=== PATIENT | male | born 1975 | race Caucasian/White ===

== ENCOUNTER 2017-02-21 07:51 | Emergency (ER) | payer BC ==
[2017-02-21] MEDS ORDERED: Tetan/Diph/Pertus SYR(Tdap)* 0.5 ML SYR(BOOSTRIX) use SYR IM ONE (08:01)
[2017-02-21 08:06] VITALS: BP 147/66
--- NOTE | 2017-02-21 08:14 | UC ---
Laceration HPI - HPI Summary HPI Summary: 41 yo M with right ventral forearm laceration sustained 02/20/17 at 4pm on a metal bucket at home. Last tetanus is unrecalled. Review of prior records at reveals Tdap in 2008. Pt still wishes tetanus update. - History Of Current Complaint Chief Complaint: UCLaceration Stated Complaint: RIGHT FOREARM LACERATION Time Seen by Provider: 02/21/17 07:56 Hx Obtained From: Patient Laceration Location: Arm - right ventral forearm Mechanism Of Injury: Sharp Trauma Onset/Duration: Sudden Onset, Lasting Hours - more than 12, 4pm 02/20/17 (20 hrs ago) Severity: Mild Pain Intensity: 0 Pain Scale Used: 0-10 Numeric Aggravating Factors: Nothing Related History: Dominant Hand Right - Allergies/Home Medications Allergies/Adverse Reactions: Allergies Allergy/AdvReac Type Severity Reaction Status Date / Time No Known Allergies Allergy Verified 02/21/17 07:57 Home Medications: Home Medications NK [No Home Medications Reported] 02/21/17 [History Confirmed 02/21/17] PMH/Surg Hx/FS Hx/Imm Hx Cardiovascular History: Hypertension - hasn't started meds yet - Surgical History Surgical History: None - Family History Known Family History: Positive: Hypertension - Social History Lives: With Family Alcohol Use: Occasionally Substance Use Type: None Smoking Status (MU): Former Smoker Type: Cigarettes When Did the Patient Quit Smoking/Using Tobacco: 2008 - Immunization History Most Recent Tetanus Shot: 2008 Review of Systems Constitutional: Negative Skin: Other - laceration right forearm Eyes: Negative ENT: Negative Respiratory: Negative Cardiovascular: Negative Gastrointestinal: Negative Genitourinary: Negative Motor: Negative Neurovascular: Negative Musculoskeletal: Negative Neurological: Negative Psychological: Negative All Other Systems Reviewed And Are Negative: Yes Physical Exam Triage Information Reviewed: Yes Appearance: Well-Appearing, No Pain Distress, Well-Nourished Vital Signs: Initial Vital Signs Temp 97.9 F 02/21/17 07:58 Pulse 70 02/21/17 07:58 Resp 18 02/21/17 07:58 BP 147/66 02/21/17 07:58 Pulse Ox 97 02/21/17 07:58 elevated BP noted Vital Signs Reviewed: Yes Eyes: Positive: Conjunctiva Clear ENT: Positive: Normal ENT inspection Neck: Positive: Supple Respiratory: Positive: No respiratory distress Cardiovascular: Positive: RRR, Pulses Normal, Brisk Capillary Refill Musculoskeletal: Positive: Strength Intact, ROM Intact Neurological: Positive: Alert, Muscle Tone Normal Psychological Exam: Normal Skin: Positive: Other - 3cm laceration to mid right ventral forearm, thru dermis. No exposed tendons, no drainage, no redness. Laceration Repair - Laceration Repair 1 Description: Linear : No Repair Necessary - wound is too old for repair Laceration Size After Repair: Length (cm) - 3, Width (mm) - 2, Depth (mm) - 1 Laceration Course/Dx - Course/Dx Course Of Treatment: Pt's wound will heal without sutures, but would have benefitted from suturing had he presented in time. However with wound more than 20 hrs old, and not currently looking infected, not in a cosmetically or functionally important area, and not so large that it is gaping, will not suture , and it will heal by secondary intention. Discussed this with pt and he is in agreement. Advised to keep it covered with antibiotic ointment and bandage until it heals, and to watch for infection. Pt's tetanus was unrecalled, but I found documentation of tetanus in 2008. Will update because pt requests it, and because for a fresh wound, it is best to have tetanus within 5 years. 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 - Differential Dx - Laceration/Wound Differental Diagnoses: Healing Wound, Laceration, Other - wound infection Provider Diagnoses: forearm laceration beyond time for suture closure. tetanus update. poorly controlled HTN Discharge - Discharge Plan Condition: Stable Disposition: HOME Patient Education Materials: Laceration Without Closure (ED), Diphtheria/ Acellular Pertussis/Tetanus Booster Vaccine (By injection), Hypertension (ED) Referrals: Vielka Owusu PA [[employer] [employer]] - Additional Instructions: Your blood pressure was 147/66 today. Please start your hypertension medication. Your tetanus shot was updated today. It is valid for 10 years. Watch your laceration for infection. Return to urgent care if any new or worsening symptoms.
== END 2017-02-21 08:25 | disposition home or self-care (01) ==
LOC: UCCORT 07:51
DX: S51.811A Laceration without foreign body of right forearm, initial encounter (principal); W45.8XXA Other foreign body or object entering through skin, initial encounter; Y93.9 Activity, unspecified; Y92.009 Unspecified place in unspecified non-institutional (private) residence as the place of occurrence of the external cause; Z23 Encounter for immunization; I10 Essential (primary) hypertension; Z87.891 Personal history of nicotine dependence
CPT/HCPCS: 90471; 90715; 99201; G0463